=== PATIENT | male | born 1990 | race Caucasian/White ===

== ENCOUNTER 2018-07-18 19:04 | Emergency (ER) | payer SELFPAY ==
--- NOTE | 2018-07-18 20:26 | ER Document Report ---
HPI - HPI Time Seen by Provider: 07/18/18 20:14 Pain Level: 5 Notes: Patient is a 28-year-old male presents to the emergency today for left facial swelling. Patient states that starting 4 days ago on he noticed he was having some mild swelling. Patient does denies fevers. Patient does report having poor dental hygiene as well as multiple dental caries. Patient does not have a dentist. Patient denies trouble swallowing. Patient does report that he smokes and has a history of sleep apnea. Patient states he does not wear his mask at night. Patient states that he took 1 of his mother's old penicillin pills on Wednesday which it did help with the swelling but has not continued to take the medication. The patient does not have a dentist. - REPRODUCTIVE Reproductive: DENIES: : Past Medical History - General Information source: Patient - Social History Smoking Status: Current Every Day Smoker Chew tobacco use (# tins/day): No Smoking Education Provided: Yes Frequency of alcohol use: None Drug Abuse: None Lives with: Family Family History: DM, Hypertension, Malignancy Patient has suicidal ideation: No Patient has homicidal ideation: No - Medical History Medical History: Negative - Past Medical History Cardiac Medical History: Reports: None Pulmonary Medical History: Reports: Hx Sleep Apnea EENT Medical History: Reports: None Neurological Medical History: Reports: None Endocrine Medical History: Reports: None Renal/ Medical History: Reports: None. Denies: Hx Peritoneal Dialysis Malignancy Medical History: Reports None GI Medical History: Reports: None Musculoskeletal Medical History: Reports None Skin Medical History: Reports None Psychiatric Medical History: Reports: None Traumatic Medical History: Reports: None Infectious Medical History: Reports: None Surgical Hx: Negative Past Surgical History: Reports: Hx Adenoidectomy, Hx Tonsillectomy - Immunizations Immunizations up to date: Yes Hx Diphtheria, Pertussis, Tetanus Vaccination: Yes Vertical Provider Document - CONSTITUTIONAL Agree With Documented VS: Yes Exam Limitations: No Limitations General Appearance: No Apparent Distress - INFECTION CONTROL TRAVEL OUTSIDE OF THE [place] IN LAST 30 DAYS: No - HEENT Notes: + Left lower facial edema, no erythema, upon visualizing patient's mouth it was noted that he had multiple dental caries and broken teeth. No abscess was visualized and or palpated. Airway patent, uvula midline. - NECK Neck: Normal Inspection, Supple, Lymphadenopathy-Left - RESPIRATORY Respiratory: Breath Sounds Normal, No Respiratory Distress - CARDIOVASCULAR Cardiovascular: Regular Rate, Regular Rhythm - GI/ABDOMEN Gastrointestinal: Abdomen Soft, Abdomen Non-Tender - NEURO Level of Consciousness: Awake, Alert, Appropriate - DERM Integumentary: Warm, Dry, No Rash Course - Vital Signs Vital signs: Temp Pulse Resp BP Pulse Ox 97.8 F 101 H 16 113/78 98 07/18/18 19:08 07/18/18 19:08 07/18/18 19:08 07/18/18 19:08 07/18/18 19:08 Discharge - Discharge Clinical Impression: Dental caries, Dental infection Condition: Stable Disposition: HOME, SELF-CARE Additional Instructions: Today you were seen in the emergency department for a dental infection with mild facial swelling. It does not appear that you have a abscess or cellulitis at this time. You will need an antibiotic and close follow-up. I am going to refer you to the [facility]. Please call them to make an appointment for follow-up as well as dental care in the future. To the emergency department if you have any worsening of symptoms to include increased swelling to your face, fever, if occult he swallowing, drooling, worsening of pain, or any worsening signs or symptoms. Take Tylenol or ibuprofen as needed for pain or discomfort. Dental Infection or Abscess You have an infection, of the gum around one of your teeth, which is probably decayed. Antibiotics are indicated at this time for the infection. If you develop high fever with chills, worsening pain, or increasing swelling in the area, see a dentist or oral surgeon immediately or return to the Emergency Department immediately. Prescriptions: Penicillin V Potassium [Penicillin Vk 500 mg Tablet] 500 mg PO BID #20 tablet Forms: Smoking Cessation Education Referrals: [facility] [Provider Group] - Follow up as needed
[2018-07-18] MEDS ORDERED: PENICILLIN V POTASSIUM 500 MG TABLET PO ONE (20:27)
[2018-07-18 20:37] VITALS: BP 119/73
== END 2018-07-18 20:35 | disposition home or self-care (01) ==
LOC: ER 19:04
DX: K04.7 Periapical abscess without sinus (principal); K02.9 Dental caries, unspecified; F17.200 Nicotine dependence, unspecified, uncomplicated
CPT/HCPCS: 99283

== ENCOUNTER 2019-08-25 23:32 | Emergency (ER) | payer SELFPAY ==
[2019-08-25 23:53] VITALS: BP 137/82
[2019-08-26] MEDS ORDERED: CLINDAMYCIN HCL 150 MG CAPSULE PO ONE (00:06)
--- NOTE | 2019-08-26 00:06 | ER Document Report ---
HPI - HPI Patient complains to provider of: Dental abscess Time Seen by Provider: 08/26/19 00:02 Onset: Other - This a 29-year-old male who has a dental abscess to the right upper and anterior incisors had no difficulty swallowing no difficulty breathing. Pain Level: 5 Associated Symptoms: None Exacerbated by: Denies - REPRODUCTIVE Reproductive: DENIES: : Past Medical History - General Information source: Patient - Social History Smoking Status: Current Every Day Smoker Cigarette use (# per day): Yes - 20 Chew tobacco use (# tins/day): No Smoking Education Provided: No Family History: DM, Hypertension, Malignancy Patient has homicidal ideation: No Pulmonary Medical History: Reports: Hx Sleep Apnea Renal/ Medical History: Denies: Hx Peritoneal Dialysis Past Surgical History: Reports: Hx Adenoidectomy, Hx Tonsillectomy - Immunizations Immunizations up to date: Yes Hx Diphtheria, Pertussis, Tetanus Vaccination: Yes Vertical Provider Document - CONSTITUTIONAL Agree With Documented VS: Yes - INFECTION CONTROL TRAVEL OUTSIDE OF THE [place] IN LAST 30 DAYS: Yes - HEENT HEENT: Atraumatic, Conjuctival Injection, Normocephalic, PERRLA - NECK Neck: Normal Inspection - RESPIRATORY Respiratory: Breath Sounds Normal, No Respiratory Distress - CARDIOVASCULAR Cardiovascular: Regular Rate, Regular Rhythm - GI/ABDOMEN Gastrointestinal: Abdomen Soft, Abdomen Non-Tender - REPRODUCTIVE Male Genitalia: Normal Inspection - BACK Back: Normal Inspection - MUSCULOSKELETAL/EXTREMETIES Musculoskeletal/Extremeties: MAEW - NEURO Level of Consciousness: Awake, Alert, Appropriate Course - Re-evaluation Re-evalutation: 08/26/19 00:03 Difficulty breathing no difficulty swallowing there is a large abscess by the incisor of the tooth patient will be provided with a dental resource sheet. - Vital Signs Vital signs: Temp Pulse Resp BP Pulse Ox 98.7 F 80 16 137/82 H 100 08/25/19 23:55 08/25/19 23:52 08/25/19 23:52 08/25/19 23:52 08/25/19 23:52 Discharge - Discharge Clinical Impression: Dental abscess Condition: Fair Disposition: HOME, SELF-CARE Instructions: Abscess ([facility] [place]), [facility], Clindamycin ([facility]), Toothache ([facility]) Additional Instructions: Dental Infection or Abscess You have an infection, perhaps an abscess (pus formation) of the gum around one of your teeth, which is probably decayed. If there is an abscess, it may drain on its own or it may need to be opened or lanced. Severe swelling or drainage around a tooth usually means a deep dental abscess which usually requires evaluation and treatment by a dentist or oral surgeon. Antibiotics may be prescribed while awaiting dental treatment. If you develop high fever with chills, worsening pain, or increasing swelling in the area, see a dentist or oral surgeon immediately or return to the Emergency Department immediately. Prescriptions: Clindamycin HCl [Cleocin HCl] 150 mg PO TID #30 capsule Naproxen Sodium [Naproxen Sodium ER] 500 mg PO Q12 PRN #20 tablet.sa PRN Reason:
[2019-08-26] MEDS ORDERED: LIDOCAINE 2% URO-JET 5 ML KIT MM ONE (00:07)
== END 2019-08-26 00:15 | disposition home or self-care (01) ==
LOC: ER 23:32
DX: K04.7 Periapical abscess without sinus (principal); F17.210 Nicotine dependence, cigarettes, uncomplicated; R06.00 Dyspnea, unspecified
CPT/HCPCS: 99282; J3490